=== PATIENT | female | born 1980 | race Caucasian/White ===

== ENCOUNTER 2020-03-30 08:28 | Outpatient (RCR) | payer MEDICARE, SELFPAY ==
--- NOTE | 2020-03-30 09:48 | PTOPEVAL ---
PHYSICAL THERAPY EVALUATION 03-30-2020 The PT evaluation was completed for the diagnosis of B LE lymphedema. Her plan of treatment is scheduled for 2x/week for 5 weeks. Thank you for referring Claudia Kuo to [facility] [place]. Please review, sign, date and return this plan of care VASQUEZ. I agree with and certify that the following plan of care is medically necessary. Referring Physician Date Admitting Provider: JOSE MIGUEL Coyne *PT Outpatient Evaluation Start: 03/30/20 08:40 Document 03/30/20 08:40 AYLIN (Rec: 03/30/20 09:48 AYLIN [id number]) Therapy Assessment Status Assessment Status Assessment Status Evaluation Outpatient Past Medical History Neurological History Hx Neurological Disorders No Significant History Cardiovascular History Hx Hypercholesterolemia Yes Hx Hypertension Yes: meds control Respiratory History Hx Asthma Yes Hx Sleep Apnea Yes Gastrointestinal History Hx Gastroesophageal Reflux Disease Yes Hx Hernia Yes: hiatal hernia Hx Irritable Bowel Yes Hx Polyps Yes Hx Other Gastrointestinal Disorders Yes: gastritis Genitourinary History Hx Other Genitourinary Disorders Yes: urinary incontinence Musculoskeletal History Hx Arthritis Yes: feet,ankles,shoulders, hips,back,knees Hx Back Pain Yes Hx Fibromyalgia Yes Hx Other Musculoskeletal Disorders Yes: wt is 354# wt gain 100#/ past 2 years Hematological History Hx Anemia Yes Endocrine History Hx Other Endocrine Disorders Yes: have referral to billing services manager- await appt HEENT History Hx HEENT Disorders No Significant History Integumentary History Hx Eczema Yes Reproductive History Hx Reproductive Disorders No Significant History Psychosocial History Hx Anxiety Yes Hx Bipolar Disorder Yes Hx Depression Yes Hx Schizophrenia Yes Pain History Has Past Pain Affected Your Daily Life Yes History of Long-Term Prescription Pain Yes: tramadol, acetaminophen Medication Use (Opiates) with codeine, gabapentin Anesthesia History Hx Anesthesia Reactions No Significant History Evaluation Information Problem Diagnosis B LE lymphedema Onset January 2019 Subjective Information gradual increase in swelling; Query Text:As Reported By Patient/ Family Previous Treatments Previous Treatments For This Problem no PT for swelling of legs Prior Level of Function Activity Level (Last 3 Months) Occupation not working- on disability, Sep 2019--
--- NOTE | 2020-06-01 14:23 | PCPTNOTE ---
PHYSICAL THERAPY DISCHARGE 06-01-2020 Attending Provider: mary jane Mckeon Patient:Claudia Kuo Date of :1980 Ms. Kuo has not returned for any further treatments since the initial evaluation on 03/30/2020, for the diagnosis of B LE lymphedema. Therefore she will be discharged at this time. The goals were not assessed. Thank you for referring this patient to [facility]. Please review, sign, date and return this discharge summary VASQUEZ. I have been updated about the patient's current status and I agree with discharge from the above service at this time. Referring Physician Date
== END 2020-06-11 14:27 | disposition home or self-care (01) ==
LOC: ANHPT 08:28
DX: I89.0 Lymphedema, not elsewhere classified (principal)
CPT/HCPCS: 97161

== ENCOUNTER 2020-12-06 17:11 | Outpatient (CLI) | payer MEDICARE, MEDICAID, SELFPAY ==
--- NOTE | ~2020-12-06 | MR_ITS ---
EXAMINATION: MR knee LT wo con DATE: 12/06/2020 18:02 INDICATION: Left knee pain. TECHNIQUE: Magnetic resonance imaging (MRI) of the left knee was performed without intravenous contra st. Sequences included coronal PD-weighted FSE, coronal PD-weighted FS FSE, sagittal T2-weighted FSE , sagittal PD-weighted FS FSE and axial PD weighted fat saturated FSE. COMPARISON: None. FINDINGS: Medial compartment: Again seen is medial extrusion of the medial meniscal body. The linear increased signal seen near the posterior root on the prior study appears more normal on the current study suggesting this may have been due to magic angle artifact rather than a radial tear. Full/near full-thickness cartilage loss w ith subarticular eburnation along the medial two thirds of the anterior weightbearing medial femoral condyle and smaller region along the medial rim of the medial tibial plateau. Less severe partial thi ckness cartilage loss along the central weightbearing medial femoral condyle. Lateral compartment: Lateral meniscus is normal. Cartilage loss with underlying small central subchondral osteophyte at th e central weightbearing lateral femoral condyle positioned over the posterior horn of the lateral men iscus with the leg in the extended position. Partial-thickness chondral fissuring along the posterior aspect of the lateral tibial plateau. Partial thickness cartilage loss with smooth chondral surface at the lateral aspect of the posterior weightbearing lateral femoral condyle. Patellofemoral compartment: Deep chondral ulceration and fissuring extending across the medial and lateral trochlea with addition al small central subchondral osteophyte along the lateral side of the trochlear groove. Additional de ep chondral fissuring along the inferior aspect of the lateral patellar facet. Ligaments and tendons: Anterior and posterior cruciate ligaments are normal. The medial collateral ligament and fibular sergio ateral ligament complex are normal. Yunior tendon is normal. Mild distal quadriceps tendinopathy. The visualized medial and lateral hamstring tendons as well as the iliotibial band are normal. Fluid: Small left knee joint effusion. No loose osteochondral bodies identified. Change medial plical band w hich extends across the rim of the medial trochlea. 5.0 x 1.7 x 0.9 cm Lozano cyst. Osseous/other: Extensive geographic regions of mild red marrow reexpansion. No fracture or pathologic marrow replac ing process. IMPRESSION: 1. Interval progression of now moderate to severe medial compartment predominant tricompartmental ost eoarthritis with new central subchondral osteophytes at the site of high-grade chondral malacia at th e weightbearing lateral femoral condyle and at the lateral trochlea. 2. Persistent medial extrusion of the medial meniscal body over the previously suspected radial tear at the posterior root is not appreciated on the current study and appearance may have been secondary to magic angle artifact. 3. Small left knee joint effusion and moderate-sized Lozano's cyst. Reviewed, dictated and finalized at location A. [employer]E [employer] INSPECTOR IMPRESSION: 1. Interval progression of now moderate to severe medial compartment predominan t tricompartmental osteoarthritis with new central subchondral osteophytes at t he site of high-grade chondral malacia at the weightbearing lateral femoral con dyle and at the lateral trochlea. 2. Persistent medial extrusion of the medial meniscal body over the previously suspected radial tear at the posterior root is not appreciated on the current s tudy and appearance may have been secondary to magic angle artifact. 3. Small left knee joint effusion and moderate-sized Lozano's cyst.
== END 2020-12-06 17:12 | disposition home or self-care (01) ==
DX: M25.562 Pain in left knee (principal); Z87.828 Personal history of other (healed) physical injury and trauma; M25.462 Effusion, left knee; M71.22 Synovial cyst of popliteal space [Baker], left knee
CPT/HCPCS: 73721

== ENCOUNTER → 2021-01-07 06:57 | Outpatient (CLI) | payer MEDICARE, MEDICAID, SELFPAY ==
[2021-01-07 21:05] LABS: SARS-CoV-2 RNA PCR Negative
== END ==
DX: Z01.812 Encounter for preprocedural laboratory examination (principal); Z20.822 Contact with and (suspected) exposure to COVID-19
CPT/HCPCS: C9803; U0003; U0005

== ENCOUNTER → 2021-01-14 06:56 | Outpatient (CLI) | payer MEDICARE, MEDICAID, SELFPAY ==
[2021-01-14 20:23] LABS: SARS-CoV-2 RNA PCR Negative
== END ==
DX: Z01.812 Encounter for preprocedural laboratory examination (principal); Z20.822 Contact with and (suspected) exposure to COVID-19
CPT/HCPCS: C9803; U0003; U0005

== ENCOUNTER → 2021-06-06 13:33 | Outpatient (CLI) | payer MEDICARE, MEDICAID, SELFPAY ==
--- NOTE | ~2021-06-06 | US_ITS ---
EXAMINATION: US soft tissue lower back DATE: 06/06/2021 14:14 INDICATION: Left flank mass. TECHNIQUE: Multiple grayscale and Doppler ultrasound images of the lower back and left flank were obt ained. COMPARISON: CT abdomen and pelvis 11/16/2014 FINDINGS: In the left flank, there is a 1.8 x 0.8 x 1.3 cm subcutaneous mass that demonstrates equal echogenicity and echotexture to normal subcutaneous fat, consistent with a lipoma. IMPRESSION: 1. 1.8 cm subcutaneous lipoma in left flank. Reviewed, dictated and finalized at location A.
--- NOTE | ~2021-06-06 | US_ITS ---
EXAMINATION: US soft tissue UE LT DATE: 06/06/2021 14:14 INDICATION: Left forearm mass. TECHNIQUE: Multiple grayscale and Doppler ultrasound images of the left forearm were obtained. COMPARISON: None FINDINGS: In the left forearm, there is a 2.6 x 0.7 x 3.0 cm subcutaneous mass that demonstrates equa l echogenicity and echotexture to normal subcutaneous fat, consistent with a lipoma. IMPRESSION: 1. 3.0 cm of subcutaneous lipoma in the left forearm. Reviewed, dictated and finalized at location A.
== END ==
PROVIDERS: PCP Physician Assistant; Visit Provider Physician Assistant
DX: M79.89 Other specified soft tissue disorders (principal)
CPT/HCPCS: 76705; 76882

== ENCOUNTER 2022-04-07 15:48 | Outpatient (CLI) | payer MEDICARE, MEDICAID, SELFPAY ==
--- NOTE | ~2022-04-07 | US_ITS ---
EXAMINATION: US pelvic complete w TV DATE: 04/07/2022 17:12 INDICATION: R10.2 - Pelvic and perineal pain , heavy dysfunctional uterine bleeding, fibroids, endom etriosis. History of ovarian cysts. TECHNIQUE: Multiple transabdominal and endovaginal sonographic images of the pelvis were obtained. COMPARISON: None. FINDINGS: Uterus: 10.6 x 10.6 x 6.5 cm. 16 x 7.7 x 6.1 cm heterogeneous mass posterior to the uterus, likely a subserosal fibroid. Endometrial complex measures 0.5 cm. Right Ovary: Not visualized. Left Ovary: 4.0 x 3.8 x 2.3 cm. Vascular flow is present. Multiple simple left ovarian cysts. Anechoi c tubular structure in the left adnexa. There is no free fluid in the pelvis. IMPRESSION: 1. 16 cm subserosal posterior uterine fibroid. 2. Left hydrosalpinx. 3. Multiple simple left ovarian cysts. 4. Right ovary not visualized. Reviewed, dictated and finalized at location K.
== END 2022-04-07 15:49 | disposition home or self-care (01) ==
PROVIDERS: PCP Physician Assistant; Visit Provider Obstetrics & Gynecology
DX: R10.2 Pelvic and perineal pain (principal); N83.202 Unspecified ovarian cyst, left side; D25.9 Leiomyoma of uterus, unspecified
CPT/HCPCS: 76830; 76856

== ENCOUNTER 2022-04-16 13:37 | Outpatient (CLI) | payer MEDICARE, MEDICAID, SELFPAY ==
[2022-04-16 14:15] LABS: Hematocrit 36.8 % (37.0-47.0); Hemoglobin 11.1 g/dL (12.0-15.0); Mean Corpuscular HGB Conc 30.2 g/dl (32-36); Mean Corpuscular Hemoglobin 24.5 pg (26-34); Mean Corpuscular Volume 81.2 fl (80-100); Mean Platelet Volume 9.5 fl (7.4-10.4); Platelet Count Result 277 k/mm3 (150-375); Red Blood Count 4.53 M/mm3 (4.2-5.4); Red Cell Distribution Width 15.4 % (11.5-14.5); White Blood Count 7.4 K/mm3 (4.5-10.0)
[2022-04-19 04:34] LABS: FSH 8.6 mIU/mL (***)
== END 2022-04-16 13:38 | disposition home or self-care (01) ==
LOC: ANHLAB 13:38
PROVIDERS: PCP Physician Assistant; Visit Provider Obstetrics & Gynecology
DX: N93.9 Abnormal uterine and vaginal bleeding, unspecified (principal)
CPT/HCPCS: 36415; 83001; 85027

== ENCOUNTER 2023-02-06 14:00 | Outpatient (RCR) | payer MEDICARE, MEDICAID, SELFPAY ==
--- NOTE | 2023-01-30 14:31 | PTOPEVAL1 ---
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- cannot bend knees; also received injections into R foot and calf, have heel spurs--arthritis in foot; problems sleeping at night due to pain; Reported Pain Level Pain Score Self Report Additional Pain Score Comments KNEES: pain range in the past week of knees 4-8/10 feel full, sharp, dull, achey, stiff; L knee is worse than R; increase pain: standing tolerance 3-4 minutes; walking tolerance 5-10 minutes; awaken from sleeping 2-3 x/night decrease pain with sitting, resting, tramadol; ice PRN- not help much; R foot: pain range in past week 3-9/10; posterior heel, lateral- mid foot; hurts so bad, going to explode; burning pain on side of foot; back of heel-pulls, little burn, stabbing; decrease pain with motrin; soak foot in epsom salt Assessment PT Clinical Summary Claudia has the diagnosis of bilateral knee and R foot pain. She has had both knees and R foot injections for pain. Her medical history includes chronic pain, back pain, arthritis multiple areas fibromyalgia. MRI and xrays from the past few years report moderate to severe OA, lozano's cyst. She is on medical disability. She reports decreased standing, walking and sleeping tolerances due to pain in knees and R foot. With the evaluation, she has weakness of R and L LE's, with decreased walking tolerance and pattern. Her patella have lateral placement; R ankle DF is decreased. She has increased pain with motions of R knee flexion and ankle DF and PF. Skilled PT services are indicated for modalities to decrease pain, therapeutic exercises to increase flexibility and strength of her knees and R ankle. To include education for home exercises. Plan of Care Interventions Gait Training,Manual Therapy,Neuro Re-education, Patient/Caregiver Education,Therapeutic Activities, The
--- NOTE | 2023-02-10 08:01 | PCPTNOTE ---
pt called and canceled all appointments, due to not having energy for therapy right now.
--- NOTE | 2023-02-26 10:27 | PCPTNOTE ---
PHYSICAL THERAPY DISCHARGE 02-26-23 Attending Provider: RONN Pelaez Patient:Claudia Kuo Date of :1980 Claudia has received 2 PT sessions, on January 30 and , for the diagnosis of bilateral knee and R foot pain. She then called and canceled her therapy, stating do not have the energy to do therapy now. Therefore, she will be discharged at this time. The goals were not assessed. Thank you for referring this patient to [facility].
== END 2023-02-26 11:49 | disposition home or self-care (01) ==
LOC: ANHPT 14:00
PROVIDERS: PCP Physician Assistant; Visit Provider Physician Assistant
DX: M25.561 Pain in right knee (principal); M25.562 Pain in left knee; G89.29 Other chronic pain
CPT/HCPCS: 97022; 97110; 97140; 97162

== ENCOUNTER 2023-02-11 15:33 | Outpatient (CLI) | payer MEDICARE, MEDICAID, SELFPAY ==
--- NOTE | ~2023-02-11 | MR_ITS ---
MRI of the left knee Clinical history: Pain Technique: Coronal proton density and proton density-weighted images, sagittal proton-density and T2 fat-sat images, and axial proton-density fat-saturated images were acquired. COMPARISON: 12/06/2020 Findings: ACL is intact, with increased signal along the ACL, consistent with mucoid degenerative katlyn nge. Posterior cruciate ligament is intact. Medial collateral ligament and the lateral collateral lig ament complex are intact. Popliteus tendon is intact. No definite lateral meniscal tear seen. There is extrusion of the body segment of the medial meniscus into the medial gutter, and the body segment is somewhat diminutive. Findings are suspicious for und erlying tear of the body segment. Extensive high-grade chondromalacia in the medial compartment is present, with prominent medial joint line osteophytes. There is patchy mild chondromalacia the lateral compartment. Subchondral osteophyt e at the posterior aspect of the lateral femoral condyle noted. There is patchy moderate chondromalac ia at the central aspect of the femoral trochlea extending along lateral facet. There is patchy mild chondromalacia patella. There are moderate lateral joint line and patellofemoral compartment osteophy nano. No suspicious bone marrow signal abnormality identified. Extensor mechanism is intact. Small joint effusion present. Small Lozano cyst present. Impression: Severe medial compartment osteoarthritis, and moderate lateral and patellofemoral compartment osteoar thritis, as detailed above. Small body segment of the medial meniscus with extrusion to the medial gutter. Findings suggest under lying tear of the body segment, somewhat poorly delineated. Mucoid degenerative change of the ACL. No ACL tear evident. Small Lozano's cyst. Reviewed, dictated and finalized at [facility]. Impression: Severe medial compartment osteoarthritis, and moderate lateral and patellofemor al compartment osteoarthritis, as detailed above. Small body segment of the medial meniscus with extrusion to the medial gutter. Findings suggest underlying tear of the body segment, somewhat poorly delineate d. Mucoid degenerative change of the ACL. No ACL tear evident. Small Lozano's cyst.
--- NOTE | ~2023-02-11 | US_ITS ---
EXAMINATION: US carotid duplex BI DATE: 02/11/2023 16:13 INDICATION: Dizziness. TECHNIQUE: Grayscale, color Doppler, and pulsed Doppler images of the cervical carotid arteries were obtained. The degree of vessel stenosis is placed in one of the following categories: normal, <50%, 5 0-69%, >=70% but less than near-occlusion, near-occlusion, or total occlusion. Note that percent sten osis relative to normal distal artery lumen diameter is indirectly measured from velocity measurement s as described by Thor, et al. Radiology 2003; 229:340-346. Notes: Normal: Peak systolic velocity <125 centimeters/sec and no plaque <50%. Peak systolic velocity <125 ( EDV <40; ICA/CCA PSV ratio <2.0; used these factors only a tandem lesions or low cardiac output or co ntralateral disease) 50-69 %: PSV 125-230 (EDV 40-100; ratio 2-4) >= 70% but less than near occlusion: PSV greater than 230 (EDV > 100; ratio> 4.0) Near Occlusion: PSV that is variable; markedly narrowed lumen Occlusion: Absent flow on color/spectral Doppler and no lumen on rivera scale. COMPARISON: None. FINDINGS: RIGHT: The right common carotid artery (CCA) peak systolic velocity (PSV) is 102 cm/s. The right internal ca rotid artery (ICA) PSV is 96 cm/s. The right ICA end-diastolic velocity (EDV) is 30 cm/s. The right I CA/CCA PSV ratio is 0.9. The external carotid artery (ECA) PSV is 116 cm/s. There is antegrade flow i n the right vertebral artery. LEFT: The left CCA PSV is 113 cm/s. The left ICA PSV is 70 cm/s. The left ICA EDV is 18 cm/s. The left ICA/ CCA PSV ratio is 0.6. The ECA PSV is 83 cm/s. There is antegrade flow in the left vertebral artery. IMPRESSION: 1. Less than 50% stenosis in the right internal carotid artery by sonographic criteria. 2. Less than 50% stenosis in the left internal carotid artery by sonographic criteria. Reviewed, dictated and finalized at location A. IMPRESSION: 1. Less than 50% stenosis in the right internal carotid artery by sonographic richa kee. 2. Less than 50% stenosis in the left internal carotid artery by sonographic helen hooper.
--- NOTE | ~2023-02-11 | MR_ITS ---
EXAMINATION: MR brain/brain stem wo/w con DATE: 02/11/2023 17:08 INDICATION: Dizziness. Frequent headaches. TECHNIQUE: Magnetic resonance imaging (MRI) of the brain and brainstem was performed without and with 20 cc MultiHance intravenous contrast. Sequences included sagittal and axial T1-weighted SE, axial d iffusion-weighted FS SE, axial T2*-weighted GRE, axial T2-weighted FLAIR Propeller, and axial T2-weig hted Propeller. Apparent diffusion coefficient (ADC) maps were created. COMPARISON: None. FINDINGS: Normal brain parenchymal volume. Normal rivera-white differentiation. The orbits are symmetri c without disconjugate gaze. No acute intracranial hemorrhage, infarction, mass or mass effect. No ab normal enhancement. Paranasal sinuses are pneumatized. Mastoids are unremarkable. Midline sagittal im ages demonstrate a normal corpus callosum and craniovertebral junction. No abnormality of the sella t urcica. No structures of the posterior fossa including the seventh/8th cranial nerve complexes are un remarkable. IMPRESSION: 1. Unremarkable MRI of the brain. Reviewed, dictated and finalized at location A.
== END 2023-02-11 15:34 | disposition home or self-care (01) ==
PROVIDERS: PCP Physician Assistant; Visit Provider Physician Assistant
DX: M17.12 Unilateral primary osteoarthritis, left knee (principal); R51.9 Headache, unspecified; M71.22 Synovial cyst of popliteal space [Baker], left knee; I65.23 Occlusion and stenosis of bilateral carotid arteries
CPT/HCPCS: 70553; 73721; 93880; A9577

== ENCOUNTER 2023-05-21 01:01 | Day surgery (SDC) | payer MEDICARE, MEDICAID, SELFPAY ==
[2023-05-11 12:52] VITALS: BMI 51.3
[2023-05-21 06:33] VITALS: BP 151/83; PULSE 77; RESP 18; TEMP 36.2; O2SAT 97
[2023-05-21] MEDS: LACTATED RINGERS 1,000 ML 150 ML IV CONT (06:46)
--- NOTE | 2023-05-21 07:16 | WPDANESEPPF ---
Anes - Initial Pre Proc Eval Procedure: Operation Date: 05/21/23 07:30 Proposed Procedures p Esophagogastroduodenoscopy & Colonoscopy - Felix Garber MD Date/Time: 05/21/23 07:16 Surgeon: Felix Garber MD Pre Op Diagnosis: gastritis,constipation,anemia, Patient Data Age: 42 Gender: F Height: 1.65 m Weight: 138.6 kg Last Vital Signs Temp 97.1 F L 05/21/23 06:33 Pulse 77 05/21/23 06:33 Resp 18 05/21/23 06:33 BP 151/83 H 05/21/23 06:33 Pulse Ox 97 05/21/23 06:33 O2 Del Method Room Air 05/21/23 06:33 Allergies Allergy/AdvReac Type Severity Reaction Status Date / Time Penicillins Allergy Intermediate Hives / Verified 05/21/23 06:28 Red Face Sulfa (Sulfonamide Allergy Intermediate Hives / Verified 05/21/23 06:28 Antibiotics) Red Face Home Medications Medication Instructions Recorded Confirmed Type losartan 50 mg tablet 50 mg PO BID 08/29/19 05/11/23 History omega-3s 300 [id number]-other 1 cap PO DAILY 10/27/19 05/11/23 History [id number] oil 1,000 mg capsule ([place]-3 Fish Oil) albuterol sulfate 90 mcg/actuation 1 inh inhalation Q4H 05/27/21 05/11/23 History aerosol inhaler (Ventolin HFA) fluticasone 250 mcg-salmeterol 50 1 inh inhalation BID 05/27/21 05/11/23 History mcg/dose blistr powdr for inhalation (Advair Diskus) omeprazole 40 mg capsule,delayed 40 mg PO DAILY 06/05/22 05/11/23 History release tramadol 50 mg tablet 50 mg PO Q6H PRN Pain 06/05/22 05/11/23 History albuterol sulfate 5 mg/mL(0.5 %) 2.5 mg inhalation Q4H PRN SOB 05/11/23 05/11/23 History solution for nebulization albuterol sulfate 90 mcg/actuation 1 inh inhalation QID PRN SOB 05/11/23 05/11/23 History aerosol inhaler (Ventolin HFA) clonazepam 0.5 mg tablet 0.5 mg PO BID PRN Anxiety 05/11/23 05/11/23 History gabapentin 300 mg tablet 900 mg PO HS 05/11/23 05/11/23 History lactobacillus combination no.8 3 3 cell PO DAILY 05/11/23 05/21/23 History billion cell capsule triamcinolone acetonide 0.025 % 1 applic topical DAILY 05/11/23 05/11/23 History topical cream Patient hx anesthesia problems: none Family hx anesthesia problems: none Results Review: All pre-operative results and documents have been reviewed as part of the pre-operative evaluation. [facility] Past Medical History Medical History Constipation Dysphagia Family history of GERD GERD (gastroesophageal reflux disease) Hip pain History of anxiety History of asthma History of bipolar disorder History of chlamydia 1996 History of depression History of gonorrhea 1996 History of herpes simplex infection History of herpes zoster virus 2004 History of high blood pressure History of low back pain History of neuropathy History of pelvic mass History of polycystic ovarian syndrome History of posttraumatic stress disorder (PTSD) History of radiculopathy History of rheumatoid arthritis History of sleep apnea History of trichotillomania History of varicose veins Hyperlipidemia Hypertension Iron deficiency anemia Lump of axilla Obsessive compulsive disorder Osteoarthritis Shoulder pain Sleep apnea Surgical History Surgical History History of Achilles tendon repair History of medial meniscus repair of left knee Hx of tonsillectomy Family History Family History Father Alcoholism Hypertension Heart disease Cerebrovascular accident Mother Breast cancer Lung cancer Hypertension Depression Sibling Alcoholism Hypertension Depression Heart disease Grandparent Breast cancer Diabetes mellitus Hypertension Depression Heart disease Thyroid disorder Grandparent Hypertension Heart disease Cerebrovascular accident Social History Social History (Updated 04/02/23 @ 13:22 by Susie Canada MA) Years s
--- NOTE | 2023-05-21 07:23 | PM.HPGS ---
History of Present Illness History of Present Illness Consent: Risks, benefits, and alternatives have been discussed and questions answered. Patient agrees to proceed with procedure. Chief complaint: gastritis,constipation,anemia, Narrative: Claudia Kuo is a 42 year old female Presents on referral from [facility]. Minimal records accompany the patient. Patient states that she has multiple difficulty she has alternating diarrhea and constipation. She denies any blood in her stools. She complains of intermittent regurgitation with substernal heartburn. Apparently she has been treated with omeprazole for many years. In the past had several endoscopies at [facility] this required dilatation. The findings are not available for review. Patient states despite taking the omeprazole she has intermittent substernal discomfort. She was told she was anemic in the past and this was attributed to her omeprazole. Patient has various pains for which she takes nonsteroidal anti-inflammatory agents. In the past she was told this likely contributed some of her discomfort. She has been unable to discontinue this totally. Family history is noncontributory. Patient referred for both EGD and colonoscopy because of these complaints. Review of Systems Review of Systems: Review of systems noncontributory. [facility] Past Medical History Medical History Constipation Dysphagia Family history of GERD GERD (gastroesophageal reflux disease) Hip pain History of anxiety History of asthma History of bipolar disorder History of chlamydia 1996 History of depression History of gonorrhea 1996 History of herpes simplex infection History of herpes zoster virus 2004 History of high blood pressure History of low back pain History of neuropathy History of pelvic mass History of polycystic ovarian syndrome History of posttraumatic stress disorder (PTSD) History of radiculopathy History of rheumatoid arthritis History of sleep apnea History of trichotillomania History of varicose veins Hyperlipidemia Hypertension Iron deficiency anemia Lump of axilla Obsessive compulsive disorder Osteoarthritis Shoulder pain Sleep apnea Surgical History Surgical History History of Achilles tendon repair History of medial meniscus repair of left knee Hx of tonsillectomy Family History Family History Father Alcoholism Hypertension Heart disease Cerebrovascular accident Mother Breast cancer Lung cancer Hypertension Depression Sibling Alcoholism Hypertension Depression Heart disease Grandparent Breast cancer Diabetes mellitus Hypertension Depression Heart disease Thyroid disorder Grandparent Hypertension Heart disease Cerebrovascular accident Social History Social History (Updated 04/02/23 @ 13:22 by Susie Canada MA) Years smoked: 20 Smoking status: Former smoker Tobacco type: cigarettes Smoking end date: 03/14/17 Alcohol intake: never Substance use: current Lack of Transportation: No Lack of Food: Never True Current Housing: I Have Housing Concerned About Future Housing: No Difficulty Paying Gas/Electric Bills: No Difficulty Paying for Meds: No Currently Unemployed: YES Education: High School Diploma/GED Difficulty w/ Childcare or Family Care: No Living arrangements: with family Additional living arrangements comments: Boyfriend Occupation/Education: other Additional occupation/education comments: Disability Gender identity (if verbalized by the patient): Female Sexual Orientation (if Verbalized by the Patient): Straight or Heterosexual Spiritual care concerns: No Meds Home Medications and Allergies Home Medications Medication Instructions Recorded Confirmed Type losartan 50 mg tablet 50 mg PO
--- NOTE | 2023-05-21 07:29 | SUR.OPER ---
EGD start 731 end 736, Colonoscopy start 742
[2023-05-21] MEDS: SIMETHICONE ORAL SUSPENSION 20 MG/0.3 ML 30 ML BOTTLE 0.6 ML IRRIGATION (07:53)
[2023-05-21 08:02] VITALS: BP 142/89; PULSE 79; RESP 23; O2SAT 98
[2023-05-21 08:12] VITALS: BP 154/103; PULSE 72; RESP 18; O2SAT 100
[2023-05-21 08:22] VITALS: BP 160/101; PULSE 64; RESP 21; O2SAT 100
== END 2023-05-21 08:30 | disposition home or self-care (01) ==
PROVIDERS: PCP Physician Assistant; Visit Provider Internal Medicine Gastroenterology
PROC: 0DJ08ZZ Inspection of Upper Intestinal Tract, Via Natural or Artificial Opening Endoscopic (ICD-10-PCS; CPT 43235; principal; 2023-05-21 07:30)
DX: Z12.11 Encounter for screening for malignant neoplasm of colon (principal); D12.5 Benign neoplasm of sigmoid colon; K64.8 Other hemorrhoids; K29.70 Gastritis, unspecified, without bleeding; K21.9 Gastro-esophageal reflux disease without esophagitis; R13.10 Dysphagia, unspecified; D50.9 Iron deficiency anemia, unspecified; K59.00 Constipation, unspecified; E78.5 Hyperlipidemia, unspecified; I10 Essential (primary) hypertension; F42.9 Obsessive-compulsive disorder, unspecified; Z79.891 Long term (current) use of opiate analgesic; Z79.51 Long term (current) use of inhaled steroids; Z87.891 Personal history of nicotine dependence; E66.9 Obesity, unspecified; Z68.43 Body mass index [BMI] 50.0-59.9, adult
CPT/HCPCS: 43239; 43450; 45385; 87081; 88305; J2704; J7120

== ENCOUNTER 2023-06-01 14:34 | Outpatient (CLI) | payer MEDICARE, MEDICAID, SELFPAY ==
--- NOTE | ~2023-06-01 | MR_ITS ---
EXAMINATION: MR ankle RT wo con DATE: 06/01/2023 15:43 INDICATION: Chronic right heel pain TECHNIQUE: Magnetic resonance imaging (MRI) of the right ankle was performed without intravenous cont rast. Sequences included sagittal, coronal, and axial proton-density weighted fast spin echo without and with fat saturation. COMPARISON: None. FINDINGS: Medial ankle ligaments: Deep and superficial deltoid ligaments as well as the spring ligament are normal. Lateral ankle ligaments: The anterior and posterior inferior tibiofibular ligaments are normal. The anterior talofibular, calc aneofibular and posterior talofibular ligaments are normal. Tendons: Thickening and mild increased intrasubstance signal at the calcaneal insertion of the distal Achilles tendon consistent with enthesopathy without discrete tear. The peroneus longus and brevis tendons ar e normal. The tibialis anterior and extensor hallucis longus and extensor digitorum longus tendons ar e normal. The tibialis posterior, flexor digitorum longus and flexor hallucis longus tendons are norm al. Plantar fascia: Plantar aponeurosis is normal. Bones/other: Bone alignment is normal. No fracture or pathologic marrow replacing process. Mild osteoarthritis at a few of the tarsal metatarsal joints with mild subarticular edema-like signal change along the dista l articular surface of the medial and lateral cuneiforms. Fluid: Physiologic amount fluid in the joint spaces. IMPRESSION: 1. Distal Achilles enthesopathy without discrete tear. 2. Mild osteoarthritis at the tarsal metatarsal joints. Reviewed, dictated and finalized at location B.
== END 2023-06-01 14:35 | disposition home or self-care (01) ==
PROVIDERS: PCP Physician Assistant; Visit Provider Physician Assistant
DX: M19.071 Primary osteoarthritis, right ankle and foot (principal)
CPT/HCPCS: 73721

== ENCOUNTER 2023-11-20 13:30 | Outpatient (RCR) | payer MEDICARE, MEDICAID, SELFPAY ==
--- NOTE | 2023-10-29 14:37 | OPREHPOC ---
Outpatient Therapy Plan of Care This is a Multidisciplinary Plan of Care that may contain components documented by all disciplines (PT, OT, and ST.) PT Problem 1 PT Problem #1 Knowledge Deficit PT Goal 1 Goal 1* indep with HEP PT Problem 2 PT Problem #2 Pain PT Goal 1 Goal 1* pt report pain at worst rating of 6/10 2* self assessment LE functional scale of 74% limitation in activity level 3* pt report standing/walking tolerance of 5 minutes PT Problem 3 PT Problem #3 Impaired Flexibility PT Goal 1 Goal increase flexibility of R ankle to improve mobility skills 1* long sitting ankld DF 10' 2* no pain increase with active DF PT Problem 4 PT Problem #4 Impaired Strength PT Goal 1 Goal increase strength of R ankle/foot to improve mobility skills: 1* single leg standing x 6 seconds 2* standing bilateral ankle PF x 12 reps, without UE support 3* 2 minute walking test distance of 375'
--- NOTE | 2023-10-29 14:37 | PTOPEVAL1 ---
Assessment and note entered by Tita Bermudez, PT Evaluation Information Assessment Status Evaluation Diagnosis R achilles tendinopathy Onset about 1 year ago Subjective Information gradual increase in pain in ankle; no trauma or injury to foot; saw foot dr--have tight calf, nothing can do, not surgery candidate; did 2 injections--did not help pain; last saw him in Aug 2023; self assessment LE functional scale 69/80=86% limitation in activity level; the orders today are from her general medical provider. x ray at foot dr office--heel/ bone spur, arthritis in toes and foot; MRI negative Activity: on medical disability; walking, standing limited due to knee, ankle and back pain; use cane all the time; have a walker, is a bariatric walker and too large in her home-- does not use; Previous PT for foot- had only one session, fluidotherapy and it felt good; she did not return for any more therapy; Reported Pain Level Pain Score Self Report Additional Pain Score Comments pain range in the past week 4-9/10;distal achilles tendon--achey,sharp,dull,stabbing increase pain with standing, walking- tolerance 2- 3 minutes, then have to sit down, moving ankle--DF ,PF,inversion and eversion motions decrease pain: sit, rest, instruct on use of ice is starting to get some similar pain in her L foot also have pain in knees, back, hips Assessment PT Clinical Summary Mariposa has the diagnosis of R achilles tendinopathy. Her medical history includes-- fibromyalgia, bilateral hip, knee and back pain. She has seen a foot for this issue also--our order is from her general care provider. She uses a cane for ambulation due to foot pain. Self assessment LE functional scale rating of 86% limitation in activity level. Reported standing/ walking tolerance of 2-3 minutes. With the evaluation, she has poor positioning of LE--knee valgus and calcaneal inversion; decreased R ankle DF ROM
--- NOTE | 2023-11-20 14:19 | PTOPDC ---
Assessment and note entered by Tita Bermudez, PT Discharge Information Assessment Status Discharge Diagnosis R achilles tendinopathy Onset about 1 year ago Subjective Information still having the same amount of pain as when started therapy; the ultrasound and massage helped for few minutes, but as soon as started walking, hurt again; is doing the exercises; has seen [address] in the past year and no one has been able to help her--injections did not help. Frustrated due to her chronic pain and wants to have less pain, without taking or getting hooked on pain meds. Reported Pain Level Pain Score Self Report Additional Pain Score Comments pain range in the past week; 4-8/10; increase pain: walking 2-3 minutes; decrease pain: sit, rest is not using ice; take tramadol for knees; ibuprofen PRN; also have pain in both knees and low back Assessment PT Clinical Summary Claudia has received 4 PT sessions. She has multiple areas of pain: low back, both knees and R ankle/foot. Compared to the initial evaluation: pain rating at the low rating the same at 4/10 and high rating decreased from 9 to 8/10; reported walking tolerance is same at 2-3 minutes; self assessment LE functional scale is worst- from 86% to 95% limitation in activity level; increased ankle DF active motion from 5 to 10'; increase single leg standing time from 1 to 3 seconds and decreased bilateral ankle PF in standing, from 7 reps to 3 reps; walking distance with 2 minute walking test is the same at 310'; Education completed for HEP, pain management and shoe wear. The goal for ROM and education were met. Discharge PT services. She is to follow up with her general health care provider. Plan of Care PT Services Indicated No
== END 2023-11-20 15:00 | disposition home or self-care (01) ==
LOC: ANHPT 13:30
PROVIDERS: PCP Physician Assistant; Visit Provider Physician Assistant
DX: M76.60 Achilles tendinitis, unspecified leg (principal); M79.671 Pain in right foot
CPT/HCPCS: 97035; 97110; 97140; 97161; 97530

== ENCOUNTER 2025-10-11 08:55 | Outpatient (CLI) | payer MEDICARE, MEDICAID, SELFPAY ==
--- NOTE | ~2025-10-11 | US_ITS ---
EXAMINATION: US soft tissue abdomen, 10/11/2025 9:10 RECYCLING OPERATOR HISTORY: SOFT TISSUE MASS Comparison: None Technique: Louise-scale and color Doppler images were obtained. Findings: Correlating with the palpable area there is a small fat-containing hernia measuring 6.4 x 1.8 x 6.7 cm, there are some complex contents noted a small amount small bowel is suspected, defect in the abdominal wall measures 3.1 cm. IMPRESSION: Ventral hernia detailed above containing probable bowel. Correlation with CT Valsalva is recommended Reviewed, dictated and finalized at location P. CLING OPERATOR IMPRESSION: Ventral hernia detailed above containing probable bowel. Correlatio n with CT Valsalva is recommended
== END 2025-10-11 08:56 | disposition home or self-care (01) ==
PROVIDERS: PCP Physician Assistant
DX: M79.89 Other specified soft tissue disorders (principal); K43.9 Ventral hernia without obstruction or gangrene
CPT/HCPCS: 76705